=== PATIENT | female | born 1975 | race Caucasian/White ===

== ENCOUNTER → 2023-11-16 13:22 | Outpatient (REF) | payer OTHER, SELFPAY | LOC: RCS 13:22 | PROVIDERS: ATTENDING PHYSICIAN Internal Medicine | DX: R00.1 Bradycardia, unspecified (principal) | CPT/HCPCS: 93225; 93226 ==

== ENCOUNTER → 2023-12-25 07:16 | Outpatient (REF) | payer OTHER, SELFPAY | LOC: HWRAD 07:16 | PROVIDERS: ATTENDING PHYSICIAN Internal Medicine | DX: R79.89 Other specified abnormal findings of blood chemistry (principal) | CPT/HCPCS: 76775 ==

== ENCOUNTER → 2024-01-13 14:26 | Outpatient (REF) | payer OTHER, SELFPAY | LOC: RCS 14:26 | PROVIDERS: ATTENDING PHYSICIAN Internal Medicine Cardiovascular Disease; FAMILY PHYSICIAN Internal Medicine | DX: R07.89 Other chest pain (principal) | CPT/HCPCS: 93017; 93350 ==

== ENCOUNTER → 2024-01-28 10:34 | Outpatient (REF) | payer OTHER, SELFPAY | LOC: RCS 10:34 | PROVIDERS: ATTENDING PHYSICIAN Internal Medicine Cardiovascular Disease; FAMILY PHYSICIAN Internal Medicine | DX: R07.89 Other chest pain (principal) | CPT/HCPCS: 93306 ==

== ENCOUNTER → 2024-02-15 14:32 | Outpatient (REF) | payer OTHER, SELFPAY | LOC: WDC 14:32 | PROVIDERS: ATTENDING PHYSICIAN Internal Medicine | DX: Z12.31 Encounter for screening mammogram for malignant neoplasm of breast (principal) | CPT/HCPCS: 77063; 77067 ==

== ENCOUNTER → 2024-07-22 13:44 | Outpatient (REF) | payer OTHER, SELFPAY | LOC: RAD 13:44 | PROVIDERS: ATTENDING PHYSICIAN Internal Medicine; FAMILY PHYSICIAN Internal Medicine | DX: M16.0 Bilateral primary osteoarthritis of hip (principal) | CPT/HCPCS: 77080 ==

== ENCOUNTER 2024-09-08 06:23 | Day surgery (SDC) | payer OTHER, SELFPAY | END 2024-09-08 11:36 | disposition home or self-care (01) | LOC: GI 06:23 | PROVIDERS: ATTENDING PHYSICIAN Internal Medicine | DX: Z12.11 Encounter for screening for malignant neoplasm of colon (principal); D12.2 Benign neoplasm of ascending colon; D12.3 Benign neoplasm of transverse colon; Z86.0101 Personal history of adenomatous and serrated colon polyps | CPT/HCPCS: 45385; 45380; 88305 ==

== ENCOUNTER → 2025-03-15 12:37 | Outpatient (REF) | payer OTHER, SELFPAY | LOC: WDC 12:37 | PROVIDERS: ATTENDING PHYSICIAN Internal Medicine | DX: Z12.31 Encounter for screening mammogram for malignant neoplasm of breast (principal) | CPT/HCPCS: 77063; 77067 ==

== ENCOUNTER → 2025-05-19 15:03 | Outpatient (REF) | payer OTHER, SELFPAY | LOC: HWRAD 15:03 | PROVIDERS: ATTENDING PHYSICIAN Internal Medicine | DX: M25.50 Pain in unspecified joint (principal) | CPT/HCPCS: 72050; 73630 ==